=== PATIENT | female | born 1935 | race Caucasian/White ===

== ENCOUNTER 2017-04-02 16:29 | Inpatient (IN) ==
[2017-04-02] MEDS ORDERED: ETOMIDATE 20 MG/10 ML VIAL IV STA (16:55)
[2017-04-02] MEDS ORDERED: VECURONIUM 10 MG VIAL IV STA (16:58)
[2017-04-02] MEDS ORDERED: SODIUM CHLORIDE 0.9% 500 ML IV STA (17:03)
[2017-04-02] MEDS ORDERED: methylPREDNISolone SOD SUC 125 MG/2 ML VIAL IV STA (17:03)
[2017-04-02] MEDS ORDERED: ONDANSETRON 4 MG/2 ML VIAL IV STA (17:03)
[2017-04-02] MEDS ORDERED: VANCOMYCIN INJ 750 MG in SODIUM CHLORIDE 0.9% 250 ML IV STA (17:03)
[2017-04-02] MEDS ORDERED: PIPERACILLIN/TAZOBACTAM 3,375 MG in SODIUM CHLORIDE 0.9% 100 ML IV STA (17:03)
[2017-04-02] MEDS ORDERED: ETOMIDATE 20 MG/10 ML VIAL IV ONE (17:08)
[2017-04-02] MEDS ORDERED: VECURONIUM 10 MG VIAL IV ONE (17:09)
[2017-04-02 17:15] LABS: Basophils # 0.1 10*3/uL (0.0-0.2); Basophils % 0.3 % (0.0-0.8); Hematocrit 43.8 VOL% (35.7-47.0); Hemoglobin 13.9 GM/DL (12.0-16.0); Immature Granulocytes % 1.6 %; Immature Granulocytes Absolute 0.58 #; Lymphocytes # 1.3 10*3/uL (1.4-4.0); Lymphocytes % 3.7 % (21.3-54.2); Mean Corpuscular HGB Conc 31.7 GM/DL (32-36); Mean Corpuscular Hemoglobin 28 PG (27-34); Mean Corpuscular Volume 89.4 FL (87-102); Mean Platelet Volume 11.7 FL (9.6-12.0); Monocytes # 2.4 10*3/uL (0.11-0.8); Monocytes % 6.7 % (1.7-12.7); NRBC # 0.07 10*3/uL; Neutrophils % 87.7 % (38.7-73.9); Platelet Count 468 T/CUMM (130-400); Red Cell Distribution Width 14.2 % (9.3-17.3); White Blood Count 36.5 T/CUMM (4-12)
[2017-04-02] MEDS ORDERED: ONDANSETRON 4 MG/2 ML VIAL ONE (17:20)
[2017-04-02] MEDS ORDERED: methylPREDNISolone SOD SUC 125 MG/2 ML VIAL ONE (17:20)
[2017-04-02 17:24] LABS: PT Patient Result 10.8 SECS
[2017-04-02 17:39] LABS: Albumin 2.4 G/DL (3.4-5.0); Bilirubin,Total 0.4 MG/DL (0.2-1.0); Calcium 10.8 MG/DL (8.5-10.1); Osmolality,Calculated 327.3 MOS/KG (273-304); Potassium 3.9 MMOL/L (3.5-5.1); Total Protein 8.1 G/DL (6.4-8.3); Troponin I Only 0.02 NG/ML (0.00-0.045)
[2017-04-02] MEDS ORDERED: SODIUM CHLORIDE 0.9% 1,000 ML IV STA (17:53)
[2017-04-02 17:56] LABS: ABG Base Excess -11.7 MMOL/L (-2.5-2.5); ABG HCO3 15.8 MMOL/L (20-26); ABG Oxygen Saturation 99.2 % (95-100); ABG PCO2 38.7 MM HG (35-48); ABG PH 7.225 (7.35-7.45); ABG TCO2 13.4 MMOL/L (23-27); Allen Test Positive; Pt O2 Delivery Device Ventilator
[2017-04-02] MEDS ORDERED: VANCOMYCIN 1,000 MG VIAL ONE (18:01)
[2017-04-02 18:22] LABS: Lactic Acid 3.6 MMOL/L (0.4-2.0)
[2017-04-02] MEDS ORDERED: SODIUM CHLORIDE 0.9% 1,700 ML IV ONE (18:29)
[2017-04-02] MEDS ORDERED: SODIUM CHLORIDE 0.9% 1,000 ML IV SCH (18:30)
[2017-04-02] MEDS ORDERED: ALBUTEROL 2.5 MG/3 ML NEB RESP TX PRN (18:31)
[2017-04-02] MEDS ORDERED: ONDANSETRON 4 MG/2 ML VIAL IV PRN (18:31)
[2017-04-02] MEDS ORDERED: ACETAMINOPHEN 325 MG TABLET PO PRN (18:31)
[2017-04-02 18:43] LABS: PT Patient Result 10.9 SECS; Partial Thromboplastin Time 23.5 SECS (0-40)
[2017-04-02] MEDS ORDERED: DEXTROSE 5% 1,000 ML IV SCH (19:00)
[2017-04-02 19:42] LABS: Amorphous Crystals,Urine Moderate /HPF (Few); Apearance,Urine CLOUDY (Clear); Bacteria,Urine Many /HPF (Few); Bilirubin,Urine Negative (Negative); Blood, Urine Moderate mg/dL (Negative); Glucose,Urine (UA) Negative (Negative); Granular Casts,Urine 19 /LPF (0-1); Hyaline Casts,Urine 19 /LPF (0-3); Ketones,Urine Negative (Negative); Mucus,Urine Occasional /LPF (Occasional); Nitrite,Urine Negative (Negative); Protein,Urine >=500 MG/DL; RBC,Urine 9 /HPF (0-4); Squamous Epithelial Cell,Urine Occasional /HPF (0-10); Urine Color Amber (Yellow); Urine Specific Gravity 1.011 (1.001-1.035); WBC,Urine 30 /HPF (0-6)
[2017-04-02 20:37] LABS: Lymphocytes 4 % (20-55); Segmented Neutrophils 91 % (50-85); Total Cells Counted 100
[2017-04-02 20:38] LABS: Platelet Estimate Normal; Polychromasia Few
[2017-04-02] MEDS: ALBUTEROL/IPRATROPIUM 3 ML NEB RESP TX SCH (20:55)
[2017-04-02] MEDS: SODIUM BICARB INJ 50 MEQ in DEXTROSE 5% 1,000 ML IV SCH (21:30)
[2017-04-02] MEDS: NOREPINEPHRINE 8 MG in SODIUM CHLORIDE 0.9% 242 ML IV SCH (21:30)
[2017-04-02 21:41] LABS: ABG Base Excess -13.5 MMOL/L (-2.5-2.5); ABG HCO3 14.1 MMOL/L (20-26); ABG Oxygen Saturation 99.3 % (95-100); ABG PCO2 27.4 MM HG (35-48); ABG PH 7.263 (7.35-7.45); ABG TCO2 11.3 MMOL/L (23-27)
[2017-04-02] MEDS: DILTIAZEM INJ 100 MG in SODIUM CHLORIDE 0.9% 100 ML IV SCH (22:18)
[2017-04-02] MEDS: PANTOPRAZOLE 40 MG VIAL IV SCH (22:22)
[2017-04-02] MEDS: ENOXAPARIN 30 MG/0.3 ML SYRINGE SUBCUT SCH (22:27)
[2017-04-02 22:52] LABS: ABG Base Excess -13.1 MMOL/L (-2.5-2.5); ABG HCO3 14.3 MMOL/L (20-26); ABG Oxygen Saturation 98.4 % (95-100); ABG PCO2 38.3 MM HG (35-48); ABG PO2 167.9 MM HG (80-95); ABG TCO2 15.5 MMOL/L (23-27)
[2017-04-02 23:49] LABS: Lactic Acid 2.4 MMOL/L (0.4-2.0)
[2017-04-03] MEDS ORDERED: SODIUM BICARBONATE 50 MEQ/50 ML SYRINGE IV ONE ×2 (00:28→00:30)
[2017-04-03] MEDS: ALBUTEROL/IPRATROPIUM 3 ML NEB RESP TX SCH ×4 (00:32→19:31)
[2017-04-03 04:15] LABS: ABG Base Excess -6.8 MMOL/L (-2.5-2.5); ABG HCO3 18.9 MMOL/L (20-26); ABG Oxygen Saturation 98.1 % (95-100); ABG PCO2 43.8 MM HG (35-48); ABG PH 7.268 (7.35-7.45); ABG TCO2 18.4 MMOL/L (23-27)
[2017-04-03 05:42] LABS: Basophils # 0.1 10*3/uL (0.0-0.2); Basophils % 0.2 % (0.0-0.8); Hematocrit 34.1 VOL% (35.7-47.0); Hemoglobin 10.6 GM/DL (12.0-16.0); Immature Granulocytes % 0.7 %; Immature Granulocytes Absolute 0.17 #; Lymphocytes # 1.2 10*3/uL (1.4-4.0); Lymphocytes % 4.9 % (21.3-54.2); Mean Corpuscular HGB Conc 31.1 GM/DL (32-36); Mean Corpuscular Hemoglobin 29 PG (27-34); Mean Corpuscular Volume 91.9 FL (87-102); Mean Platelet Volume 11.4 FL (9.6-12.0); Monocytes # 0.8 10*3/uL (0.11-0.8); Monocytes % 3.2 % (1.7-12.7); NRBC # 0.02 10*3/uL; Neutrophils # 22.5 10*3/uL (1.4-7.4); Platelet Count 282 T/CUMM (130-400); Red Blood Count 3.71 MC/CUMM (3.8-5.5); Red Cell Distribution Width 14.4 % (9.3-17.3); White Blood Count 24.7 T/CUMM (4-12)
[2017-04-03 05:54] LABS: Lactic Acid 2.5 MMOL/L (0.4-2.0)
[2017-04-03 06:09] LABS: Alanine Aminotransferase 16 U/L (13-56); Albumin 1.5 G/DL (3.4-5.0); Alkaline Phosphatase 82 U/L (45-117); Aspartate Amino Transferase 23 U/L (0-37); Bilirubin,Total < 0.39 MG/DL (0.2-1.0); Blood Urea Nitrogen 58 MG/DL (7-18); Calcium 7.2 MG/DL (8.5-10.1); Glucose 343 MG/DL (74-106); Osmolality,Calculated 336.3 MOS/KG (273-304); Potassium 2.8 MMOL/L (3.5-5.1); Sodium 155 MMOL/L (136-145); Total Protein 5.1 G/DL (6.4-8.3)
[2017-04-03 06:16] LABS: Band Neutrophils 11 % (0-10); Giant Platelets Few; Hypochromasia 1+; Lymphocytes 3 % (20-55); Nucleated Red Blood Cells 1 (0-5); Ovalocytes Slight; Platelet Estimate Adequate; Segmented Neutrophils 83 % (50-85); Total Cells Counted 100
[2017-04-03] MEDS: SODIUM BICARB INJ 50 MEQ in DEXTROSE 5% 1,000 ML IV SCH ×2 (06:36→14:45)
[2017-04-03] MEDS ORDERED: LIDOCAINE 2% 20 ML VIAL RESP TX ONE (06:36)
[2017-04-03] MEDS ORDERED: LIDOCAINE 1% 20 ML VIAL MISC INJ ONE (06:36)
[2017-04-03] MEDS: PROPOFOL 1,000 MG/100 ML BOTTLE IV SCH ×2 (07:00→21:39)
[2017-04-03 08:10] LABS: ABG Base Excess -5.3 MMOL/L (-2.5-2.5); ABG HCO3 19.6 MMOL/L (20-26); ABG Oxygen Saturation 97.4 % (95-100); ABG PCO2 36.4 MM HG (35-48); ABG PO2 98.6 MM HG (80-95); ABG TCO2 20.8 MMOL/L (23-27); Pt O2 Delivery Device Ventilator
[2017-04-03] MEDS: PIPERACILLIN/TAZOBACTAM 3,375 MG in SODIUM CHLORIDE 0.9% 100 ML IV SCH ×2 (08:30→21:23)
[2017-04-03] MEDS ORDERED: POTASSIUM CHLORIDE RIDER 20 MEQ in PREMIX 1 EACH IV PRN (08:44)
[2017-04-03] MEDS ORDERED: POTASSIUM CHLORIDE RIDER 10 MEQ in PREMIX 1 EACH IV PRN (08:47)
[2017-04-03] MEDS ORDERED: PANTOPRAZOLE 40 MG TABLET PO SCH (09:00)
[2017-04-03] MEDS: POTASSIUM CHLORIDE RIDER 20 MEQ in PREMIX 1 EACH IV PRN ×4 (09:00→14:45)
[2017-04-03] MEDS: NOREPINEPHRINE 8 MG in SODIUM CHLORIDE 0.9% 242 ML IV SCH (09:15)
[2017-04-03] MEDS: INSULIN REGULAR 100 UNIT/ML SUBCUT SCH ×2 (11:45→18:15)
[2017-04-03] MEDS ORDERED: GLUCAGON 1 MG VIAL IM PRN (12:34)
[2017-04-03] MEDS ORDERED: DEXTROSE 50% 25 GM/50 ML VIAL IV PRN (12:34)
[2017-04-03] MEDS: ENOXAPARIN 30 MG/0.3 ML SYRINGE SUBCUT SCH (21:23)
[2017-04-03] MEDS: DILTIAZEM INJ 100 MG in SODIUM CHLORIDE 0.9% 100 ML IV SCH (21:23)
[2017-04-03] MEDS: PANTOPRAZOLE 40 MG VIAL IV SCH (21:23)
[2017-04-04] MEDS: SODIUM BICARB INJ 50 MEQ in DEXTROSE 5% 1,000 ML IV SCH ×4 (00:10→21:35)
[2017-04-04] MEDS: INSULIN REGULAR 100 UNIT/ML SUBCUT SCH ×4 (00:24→18:27)
[2017-04-04] MEDS: ALBUTEROL/IPRATROPIUM 3 ML NEB RESP TX SCH ×4 (00:47→19:07)
[2017-04-04 03:30] LABS: ABG Base Excess -1.4 MMOL/L (-2.5-2.5); ABG HCO3 23.3 MMOL/L (20-26); ABG Oxygen Saturation 99.7 % (95-100); ABG PCO2 28.6 MM HG (35-48); ABG PH 7.483 (7.35-7.45); ABG TCO2 19.8 MMOL/L (23-27); Allen Test Positive; Pt O2 Delivery Device Ventilator
[2017-04-04 04:45] LABS: Basophils # 0.1 10*3/uL (0.0-0.2); Basophils % 0.1 % (0.0-0.8); Hematocrit 26.4 VOL% (35.7-47.0); Hemoglobin 8.4 GM/DL (12.0-16.0); Immature Granulocytes % 2.7 %; Lymphocytes # 2.2 10*3/uL (1.4-4.0); Lymphocytes % 6.5 % (21.3-54.2); Mean Corpuscular HGB Conc 31.8 GM/DL (32-36); Mean Corpuscular Hemoglobin 28 PG (27-34); Mean Corpuscular Volume 88.3 FL (87-102); Mean Platelet Volume 11.4 FL (9.6-12.0); Monocytes # 0.5 10*3/uL (0.11-0.8); Monocytes % 1.4 % (1.7-12.7); NRBC # 0.02 10*3/uL; Neutrophils # 30.2 10*3/uL (1.4-7.4); Neutrophils % 89.3 % (38.7-73.9); Platelet Count 253 T/CUMM (130-400); Red Blood Count 2.99 MC/CUMM (3.8-5.5); Red Cell Distribution Width 14.2 % (9.3-17.3); White Blood Count 33.8 T/CUMM (4-12)
[2017-04-04 05:06] LABS: Band Neutrophils 2 % (0-10); Lymphocytes 4 % (20-55); Platelet Estimate Adequate; Segmented Neutrophils 93 % (50-85); Total Cells Counted 100
[2017-04-04 05:07] LABS: Hypochromasia Slight; Ovalocytes Slight
[2017-04-04 05:17] LABS: Prealbumin < 3.0 MG/DL (20-40)
[2017-04-04] MEDS: NOREPINEPHRINE 8 MG in SODIUM CHLORIDE 0.9% 242 ML IV SCH ×2 (05:18→19:08)
[2017-04-04 05:23] LABS: Calcium 6.7 MG/DL (8.5-10.1); Osmolality,Calculated 309.4 MOS/KG (273-304); Potassium 3.1 MMOL/L (3.5-5.1)
[2017-04-04] MEDS: POTASSIUM CHLORIDE RIDER 20 MEQ in PREMIX 1 EACH IV PRN ×4 (06:42→18:29)
[2017-04-04] MEDS: PIPERACILLIN/TAZOBACTAM 3,375 MG in SODIUM CHLORIDE 0.9% 100 ML IV SCH ×2 (09:47→20:13)
[2017-04-04] MEDS: LINEZOLID INJ 600 MG in PREMIX 1 EACH IV SCH ×2 (10:27→20:14)
[2017-04-04] MEDS ORDERED: SODIUM PHOSPHATE INJ 30 MMOL in SODIUM CHLORIDE 0.9% 250 ML IV ONE (10:30)
[2017-04-04] MEDS: DILTIAZEM INJ 100 MG in SODIUM CHLORIDE 0.9% 100 ML IV SCH (18:27)
[2017-04-04] MEDS: PROPOFOL 1,000 MG/100 ML BOTTLE IV SCH (18:27)
[2017-04-04] MEDS: PANTOPRAZOLE 40 MG VIAL IV SCH (20:13)
[2017-04-04] MEDS: ENOXAPARIN 30 MG/0.3 ML SYRINGE SUBCUT SCH (20:14)
[2017-04-05] MEDS: INSULIN REGULAR 100 UNIT/ML SUBCUT SCH ×4 (00:23→17:59)
[2017-04-05] MEDS: ALBUTEROL/IPRATROPIUM 3 ML NEB RESP TX SCH ×4 (01:31→19:21)
[2017-04-05 04:06] LABS: ABG Base Excess -1.1 MMOL/L (-2.5-2.5); ABG HCO3 23.5 MMOL/L (20-26); ABG Oxygen Saturation 97.7 % (95-100); ABG PCO2 31.2 MM HG (35-48); ABG PO2 85.5 MM HG (80-95); ABG TCO2 20.7 MMOL/L (23-27)
[2017-04-05 04:45] LABS: Basophils % 0.1 % (0.0-0.8); Eosinophils % 0.2 % (0.00-10.9); Hematocrit 22.3 VOL% (35.7-47.0); Hemoglobin 7.5 GM/DL (12.0-16.0); Immature Granulocytes % 2.8 %; Immature Granulocytes Absolute 0.51 #; Lymphocytes # 1.7 10*3/uL (1.4-4.0); Lymphocytes % 8.9 % (21.3-54.2); Mean Corpuscular HGB Conc 33.6 GM/DL (32-36); Mean Corpuscular Hemoglobin 28 PG (27-34); Mean Corpuscular Volume 84.5 FL (87-102); Mean Platelet Volume 11.3 FL (9.6-12.0); Monocytes # 0.3 10*3/uL (0.11-0.8); Monocytes % 1.6 % (1.7-12.7); Neutrophils % 86.4 % (38.7-73.9); Platelet Count 178 T/CUMM (130-400); Red Blood Count 2.64 MC/CUMM (3.8-5.5); Red Cell Distribution Width 14.3 % (9.3-17.3); White Blood Count 18.5 T/CUMM (4-12)
[2017-04-05 05:04] LABS: Calcium 6.3 MG/DL (8.5-10.1); Osmolality,Calculated 292.4 MOS/KG (273-304); Potassium 3.1 MMOL/L (3.5-5.1)
[2017-04-05 05:20] LABS: Band Neutrophils 2 % (0-10); Giant Platelets Few; Hypochromasia 1+; Lymphocytes 8 % (20-55); Nucleated Red Blood Cells 1 (0-5); Ovalocytes Slight; Platelet Estimate Normal; Segmented Neutrophils 90 % (50-85); Total Cells Counted 100
[2017-04-05] MEDS: POTASSIUM CHLORIDE RIDER 20 MEQ in PREMIX 1 EACH IV PRN ×2 (06:23→18:43)
[2017-04-05] MEDS: SODIUM BICARB INJ 50 MEQ in DEXTROSE 5% 1,000 ML IV SCH ×2 (07:00→17:34)
[2017-04-05] MEDS ORDERED: FUROSEMIDE 20 MG/2 ML VIAL IV PRN (07:04)
[2017-04-05] MEDS ORDERED: SODIUM CHLORIDE 0.9% 1,000 ML IV PRN (07:04)
[2017-04-05] MEDS: PIPERACILLIN/TAZOBACTAM 3,375 MG in SODIUM CHLORIDE 0.9% 100 ML IV SCH ×2 (09:10→21:34)
[2017-04-05] MEDS: POTASSIUM CHLORIDE 20 MEQ/15 ML UDCUP PO SCH ×2 (09:10→21:32)
[2017-04-05] MEDS: LINEZOLID INJ 600 MG in PREMIX 1 EACH IV SCH ×2 (09:10→21:34)
[2017-04-05] MEDS: DEXMEDETOMIDINE 200 MCG in SODIUM CHLORIDE 0.9% 48 ML IV SCH ×2 (11:57→17:10)
[2017-04-05] MEDS: PROPOFOL 1,000 MG/100 ML BOTTLE IV SCH (18:01)
[2017-04-05] MEDS: DILTIAZEM INJ 100 MG in SODIUM CHLORIDE 0.9% 100 ML IV SCH (18:52)
[2017-04-05] MEDS: NOREPINEPHRINE 8 MG in SODIUM CHLORIDE 0.9% 242 ML IV SCH (18:52)
[2017-04-05] MEDS: ENOXAPARIN 30 MG/0.3 ML SYRINGE SUBCUT SCH (21:31)
[2017-04-05] MEDS: PANTOPRAZOLE 40 MG VIAL IV SCH (21:33)
[2017-04-06] MEDS: ALBUTEROL/IPRATROPIUM 3 ML NEB RESP TX SCH ×4 (01:16→18:52)
[2017-04-06] MEDS: SODIUM BICARB INJ 50 MEQ in DEXTROSE 5% 1,000 ML IV SCH ×2 (01:40→15:41)
[2017-04-06] MEDS: PROPOFOL 1,000 MG/100 ML BOTTLE IV SCH ×4 (03:00→21:08)
[2017-04-06 04:25] LABS: ABG Base Excess 1.3 MMOL/L (-2.5-2.5); ABG HCO3 25.5 MMOL/L (20-26); ABG Oxygen Saturation 98.5 % (95-100); ABG PCO2 34.9 MM HG (35-48); ABG PH 7.454 (7.35-7.45)
[2017-04-06 06:07] LABS: Basophils % 0.2 % (0.0-0.8); Eosinophils # 0.2 10*3/uL (0.0-0.87); Eosinophils % 1.1 % (0.00-10.9); Hematocrit 31.9 VOL% (35.7-47.0); Hemoglobin 10.9 GM/DL (12.0-16.0); Immature Granulocytes % 1.5 %; Immature Granulocytes Absolute 0.29 #; Lymphocytes # 2.1 10*3/uL (1.4-4.0); Mean Corpuscular HGB Conc 34.2 GM/DL (32-36); Mean Corpuscular Hemoglobin 28 PG (27-34); Mean Corpuscular Volume 81.4 FL (87-102); Mean Platelet Volume 11.3 FL (9.6-12.0); Monocytes # 0.3 10*3/uL (0.11-0.8); Monocytes % 1.6 % (1.7-12.7); Neutrophils % 84.6 % (38.7-73.9); Platelet Count 165 T/CUMM (130-400); Red Blood Count 3.92 MC/CUMM (3.8-5.5); Red Cell Distribution Width 16.4 % (9.3-17.3); White Blood Count 18.9 T/CUMM (4-12)
[2017-04-06 06:32] LABS: Hypochromasia 2+
[2017-04-06] MEDS: INSULIN REGULAR 100 UNIT/ML SUBCUT SCH ×4 (07:40→18:28)
[2017-04-06] MEDS: PIPERACILLIN/TAZOBACTAM 3,375 MG in SODIUM CHLORIDE 0.9% 100 ML IV SCH ×2 (08:36→21:09)
[2017-04-06] MEDS: LINEZOLID INJ 600 MG in PREMIX 1 EACH IV SCH ×2 (08:37→21:10)
[2017-04-06] MEDS: POTASSIUM CHLORIDE 20 MEQ/15 ML UDCUP PO SCH ×2 (08:38→21:09)
[2017-04-06 09:36] LABS: Albumin 1.1 G/DL (3.4-5.0); Bilirubin,Total 0.4 MG/DL (0.2-1.0); Calcium 6.2 MG/DL (8.5-10.1); Osmolality,Calculated 286.5 MOS/KG (273-304); Potassium 3.5 MMOL/L (3.5-5.1); Total Protein 4.5 G/DL (6.4-8.3)
[2017-04-06] MEDS: DEXMEDETOMIDINE 200 MCG in SODIUM CHLORIDE 0.9% 48 ML IV SCH (11:45)
[2017-04-06] MEDS: NOREPINEPHRINE 8 MG in SODIUM CHLORIDE 0.9% 242 ML IV SCH (15:53)
[2017-04-06] MEDS: PANTOPRAZOLE 40 MG VIAL IV SCH (21:09)
[2017-04-06] MEDS: ENOXAPARIN 30 MG/0.3 ML SYRINGE SUBCUT SCH (21:09)
[2017-04-07] MEDS: SODIUM BICARB INJ 50 MEQ in DEXTROSE 5% 1,000 ML IV SCH
[2017-04-07] MEDS: ALBUTEROL/IPRATROPIUM 3 ML NEB RESP TX SCH ×4 (00:50→20:16)
[2017-04-07 04:15] LABS: ABG Base Excess 1.7 MMOL/L (-2.5-2.5); ABG HCO3 25.9 MMOL/L (20-26); ABG Oxygen Saturation 96.5 % (95-100); ABG PCO2 33.9 MM HG (35-48); ABG PH 7.474 (7.35-7.45); ABG PO2 75.1 MM HG (80-95); ABG TCO2 22.1 MMOL/L (23-27); Pt O2 Delivery Device Ventilator
[2017-04-07] MEDS: PROPOFOL 1,000 MG/100 ML BOTTLE IV SCH ×3 (05:00→22:50)
[2017-04-07 05:36] LABS: Basophils % 0.2 % (0.0-0.8); Eosinophils # 0.2 10*3/uL (0.0-0.87); Eosinophils % 1.2 % (0.00-10.9); Hematocrit 32.6 VOL% (35.7-47.0); Hemoglobin 11.1 GM/DL (12.0-16.0); Immature Granulocytes % 2.8 %; Immature Granulocytes Absolute 0.52 #; Lymphocytes # 1.8 10*3/uL (1.4-4.0); Lymphocytes % 9.6 % (21.3-54.2); Mean Corpuscular Hemoglobin 28 PG (27-34); Mean Corpuscular Volume 81.7 FL (87-102); Mean Platelet Volume 11.3 FL (9.6-12.0); Monocytes # 0.4 10*3/uL (0.11-0.8); Monocytes % 2.1 % (1.7-12.7); Neutrophils # 15.4 10*3/uL (1.4-7.4); Neutrophils % 84.1 % (38.7-73.9); Platelet Count 182 T/CUMM (130-400); Red Blood Count 3.99 MC/CUMM (3.8-5.5); Red Cell Distribution Width 16.1 % (9.3-17.3); White Blood Count 18.4 T/CUMM (4-12)
[2017-04-07 06:01] LABS: Calcium 6.8 MG/DL (8.5-10.1); Osmolality,Calculated 284.5 MOS/KG (273-304); Potassium 4.1 MMOL/L (3.5-5.1)
[2017-04-07] MEDS: INSULIN REGULAR 100 UNIT/ML SUBCUT SCH ×3 (06:28→17:48)
[2017-04-07] MEDS: NOREPINEPHRINE 8 MG in SODIUM CHLORIDE 0.9% 242 ML IV SCH (06:28)
[2017-04-07 06:36] LABS: Band Neutrophils 12 % (0-10); Eosinophils 1 % (0-10); Hypochromasia Slight; Lymphocytes 8 % (20-55); Platelet Estimate Adequate; Segmented Neutrophils 73 % (50-85); Total Cells Counted 100
[2017-04-07] MEDS ORDERED: MAGNESIUM SULF RIDER 4 GM in PREMIX 1 EACH IV PRN (07:39)
[2017-04-07] MEDS ORDERED: MAGNESIUM SULF RIDER 2 GM in PREMIX 1 EACH IV PRN (07:39)
[2017-04-07] MEDS: POTASSIUM CHLORIDE 20 MEQ/15 ML UDCUP PO SCH ×2 (09:36→21:03)
[2017-04-07] MEDS: FUROSEMIDE 40 MG/4 ML VIAL IV SCH (09:36)
[2017-04-07] MEDS: PIPERACILLIN/TAZOBACTAM 3,375 MG in SODIUM CHLORIDE 0.9% 100 ML IV SCH ×2 (09:36→21:04)
[2017-04-07] MEDS: HALOPERIDOL 5 MG/ML AMP IV SCH ×2 (14:34→21:03)
[2017-04-07] MEDS: PANTOPRAZOLE 40 MG VIAL IV SCH (21:03)
[2017-04-07] MEDS: ENOXAPARIN 30 MG/0.3 ML SYRINGE SUBCUT SCH (21:03)
[2017-04-08] MEDS: ALBUTEROL/IPRATROPIUM 3 ML NEB RESP TX SCH ×4 (00:31→19:00)
[2017-04-08] MEDS: INSULIN REGULAR 100 UNIT/ML SUBCUT SCH ×4 (01:36→18:10)
[2017-04-08] MEDS: NOREPINEPHRINE 8 MG in SODIUM CHLORIDE 0.9% 242 ML IV SCH (01:36)
[2017-04-08 04:24] LABS: ABG Oxygen Saturation 97.7 % (95-100); ABG PCO2 38.1 MM HG (35-48); ABG PH 7.456 (7.35-7.45); ABG PO2 92.9 MM HG (80-95); ABG TCO2 23.8 MMOL/L (23-27)
[2017-04-08 05:23] LABS: Basophils % 0.1 % (0.0-0.8); Eosinophils # 0.2 10*3/uL (0.0-0.87); Eosinophils % 0.9 % (0.00-10.9); Hematocrit 34.4 VOL% (35.7-47.0); Hemoglobin 11.1 GM/DL (12.0-16.0); Immature Granulocytes % 3.1 %; Immature Granulocytes Absolute 0.51 #; Lymphocytes # 1.8 10*3/uL (1.4-4.0); Lymphocytes % 10.8 % (21.3-54.2); Mean Corpuscular HGB Conc 32.3 GM/DL (32-36); Mean Corpuscular Hemoglobin 28 PG (27-34); Mean Corpuscular Volume 85.6 FL (87-102); Mean Platelet Volume 10.6 FL (9.6-12.0); Monocytes # 0.4 10*3/uL (0.11-0.8); Monocytes % 2.3 % (1.7-12.7); Neutrophils # 13.7 10*3/uL (1.4-7.4); Neutrophils % 82.8 % (38.7-73.9); Platelet Count 183 T/CUMM (130-400); Red Blood Count 4.02 MC/CUMM (3.8-5.5); Red Cell Distribution Width 16.2 % (9.3-17.3); White Blood Count 16.6 T/CUMM (4-12)
[2017-04-08 05:39] LABS: Calcium 7.6 MG/DL (8.5-10.1); Osmolality,Calculated 289.3 MOS/KG (273-304); Potassium 4.5 MMOL/L (3.5-5.1)
[2017-04-08 05:42] LABS: Prealbumin 9.2 MG/DL (20-40)
[2017-04-08 05:50] LABS: Band Neutrophils 2 % (0-10); Hypochromasia 1+; Lymphocytes 11 % (20-55); Microcytosis 1+; Myelocytes 1 %; Ovalocytes Slight; Promyelocytes 1 %; Segmented Neutrophils 84 % (50-85); Total Cells Counted 100
[2017-04-08] MEDS: PROPOFOL 1,000 MG/100 ML BOTTLE IV SCH ×2 (06:59→20:23)
[2017-04-08] MEDS: PIPERACILLIN/TAZOBACTAM 3,375 MG in SODIUM CHLORIDE 0.9% 100 ML IV SCH ×2 (09:00→21:28)
[2017-04-08] MEDS: POTASSIUM CHLORIDE 20 MEQ/15 ML UDCUP PO SCH ×2 (09:00→21:28)
[2017-04-08] MEDS: HALOPERIDOL 5 MG/ML AMP IV SCH ×2 (09:00→21:27)
[2017-04-08] MEDS: FUROSEMIDE 40 MG/4 ML VIAL IV SCH (09:00)
[2017-04-08] MEDS: ENOXAPARIN 30 MG/0.3 ML SYRINGE SUBCUT SCH (21:27)
[2017-04-08] MEDS: PANTOPRAZOLE 40 MG VIAL IV SCH (21:28)
[2017-04-09] MEDS: ALBUTEROL/IPRATROPIUM 3 ML NEB RESP TX SCH ×4 (00:19→20:27)
[2017-04-09 05:31] LABS: ABG Base Excess 3.5 MMOL/L (-2.5-2.5); ABG HCO3 27.5 MMOL/L (20-26); ABG Oxygen Saturation 98.7 % (95-100); ABG PCO2 36.3 MM HG (35-48); ABG PH 7.476 (7.35-7.45); ABG TCO2 22.6 MMOL/L (23-27); Allen Test Positive; Pt O2 Delivery Device Ventilator
[2017-04-09] MEDS: INSULIN REGULAR 100 UNIT/ML SUBCUT SCH ×3 (05:59→18:42)
[2017-04-09] MEDS: NOREPINEPHRINE 8 MG in SODIUM CHLORIDE 0.9% 242 ML IV SCH ×2 (08:11→18:43)
[2017-04-09 08:13] LABS: Basophils % 0.1 % (0.0-0.8); Eosinophils # 0.1 10*3/uL (0.0-0.87); Eosinophils % 0.6 % (0.00-10.9); Hematocrit 35.9 VOL% (35.7-47.0); Hemoglobin 11.4 GM/DL (12.0-16.0); Immature Granulocytes % 3.2 %; Immature Granulocytes Absolute 0.47 #; Lymphocytes # 1.6 10*3/uL (1.4-4.0); Lymphocytes % 11.2 % (21.3-54.2); Mean Corpuscular HGB Conc 31.8 GM/DL (32-36); Mean Corpuscular Hemoglobin 27 PG (27-34); Mean Corpuscular Volume 85.3 FL (87-102); Mean Platelet Volume 10.6 FL (9.6-12.0); Monocytes # 0.5 10*3/uL (0.11-0.8); Monocytes % 3.2 % (1.7-12.7); Neutrophils # 11.9 10*3/uL (1.4-7.4); Neutrophils % 81.7 % (38.7-73.9); Platelet Count 213 T/CUMM (130-400); Red Blood Count 4.21 MC/CUMM (3.8-5.5); Red Cell Distribution Width 16.2 % (9.3-17.3); White Blood Count 14.6 T/CUMM (4-12)
[2017-04-09 08:45] LABS: Albumin 1.4 G/DL (3.4-5.0); Bilirubin,Total 0.4 MG/DL (0.2-1.0); Calcium 7.8 MG/DL (8.5-10.1); Osmolality,Calculated 290.4 MOS/KG (273-304); Potassium 4.6 MMOL/L (3.5-5.1); Total Protein 5.6 G/DL (6.4-8.3)
[2017-04-09] MEDS: FUROSEMIDE 40 MG/4 ML VIAL IV SCH (09:23)
[2017-04-09] MEDS: HALOPERIDOL 5 MG/ML AMP IV SCH ×2 (09:25→21:31)
[2017-04-09] MEDS: PIPERACILLIN/TAZOBACTAM 3,375 MG in SODIUM CHLORIDE 0.9% 100 ML IV SCH ×2 (09:29→21:31)
[2017-04-09] MEDS: POTASSIUM CHLORIDE 20 MEQ/15 ML UDCUP PO SCH ×2 (09:30→21:31)
[2017-04-09] MEDS: PROPOFOL 1,000 MG/100 ML BOTTLE IV SCH (18:42)
[2017-04-09] MEDS: PANTOPRAZOLE 40 MG VIAL IV SCH (21:31)
[2017-04-09] MEDS: ENOXAPARIN 30 MG/0.3 ML SYRINGE SUBCUT SCH (21:31)
[2017-04-10] MEDS: ALBUTEROL/IPRATROPIUM 3 ML NEB RESP TX SCH ×4 (01:03→19:42)
[2017-04-10 03:56] LABS: ABG Base Excess 2.8 MMOL/L (-2.5-2.5); ABG Oxygen Saturation 98.5 % (95-100); ABG PCO2 35.9 MM HG (35-48); ABG PH 7.473 (7.35-7.45); ABG TCO2 23.3 MMOL/L (23-27); Allen Test Positive; Pt O2 Delivery Device Ventilator
[2017-04-10] MEDS: INSULIN REGULAR 100 UNIT/ML SUBCUT SCH ×4 (04:38→18:30)
[2017-04-10 06:12] LABS: Basophils % 0.2 % (0.0-0.8); Eosinophils # 0.1 10*3/uL (0.0-0.87); Eosinophils % 0.9 % (0.00-10.9); Immature Granulocytes % 3.6 %; Lymphocytes # 1.9 10*3/uL (1.4-4.0); Lymphocytes % 13.7 % (21.3-54.2); Mean Corpuscular HGB Conc 31.4 GM/DL (32-36); Mean Corpuscular Hemoglobin 27 PG (27-34); Mean Corpuscular Volume 86.4 FL (87-102); Mean Platelet Volume 10.9 FL (9.6-12.0); Monocytes # 0.7 10*3/uL (0.11-0.8); Monocytes % 4.8 % (1.7-12.7); Neutrophils # 10.6 10*3/uL (1.4-7.4); Neutrophils % 76.8 % (38.7-73.9); Platelet Count 233 T/CUMM (130-400); Red Blood Count 4.05 MC/CUMM (3.8-5.5); Red Cell Distribution Width 15.9 % (9.3-17.3); White Blood Count 13.8 T/CUMM (4-12)
[2017-04-10 06:47] LABS: Albumin 1.5 G/DL (3.4-5.0); Bilirubin,Total 0.5 MG/DL (0.2-1.0); Calcium 8.4 MG/DL (8.5-10.1); Osmolality,Calculated 290.5 MOS/KG (273-304); Potassium 4.9 MMOL/L (3.5-5.1); Total Protein 5.7 G/DL (6.4-8.3)
[2017-04-10] MEDS ORDERED: LEVOFLOXACIN INJ 500 MG in PREMIX 1 EACH IV ONE (08:30)
[2017-04-10] MEDS: FUROSEMIDE 40 MG/4 ML VIAL IV SCH (09:07)
[2017-04-10] MEDS: HALOPERIDOL 5 MG/ML AMP IV SCH ×2 (09:07→21:36)
[2017-04-10] MEDS: POTASSIUM CHLORIDE 20 MEQ/15 ML UDCUP PO SCH ×2 (09:07→21:37)
[2017-04-10] MEDS: CARVEDILOL 12.5 MG TABLET PO SCH ×2 (13:12→21:37)
[2017-04-10] MEDS: PANTOPRAZOLE 40 MG VIAL IV SCH (21:35)
[2017-04-10] MEDS: ENOXAPARIN 30 MG/0.3 ML SYRINGE SUBCUT SCH (21:40)
[2017-04-11] MEDS: INSULIN REGULAR 100 UNIT/ML SUBCUT SCH ×5 (00:55→23:52)
[2017-04-11] MEDS: ALBUTEROL/IPRATROPIUM 3 ML NEB RESP TX SCH ×4 (01:19→20:10)
[2017-04-11 04:05] LABS: ABG Base Excess 1.9 MMOL/L (-2.5-2.5); ABG HCO3 26.1 MMOL/L (20-26); ABG Oxygen Saturation 97.5 % (95-100); ABG PH 7.476 (7.35-7.45); ABG PO2 89.6 MM HG (80-95); ABG TCO2 22.2 MMOL/L (23-27); Allen Test Positive; Pt O2 Delivery Device Ventilator
[2017-04-11 04:54] LABS: Basophils % 0.1 % (0.0-0.8); Eosinophils # 0.2 10*3/uL (0.0-0.87); Hematocrit 34.7 VOL% (35.7-47.0); Hemoglobin 10.9 GM/DL (12.0-16.0); Immature Granulocytes % 4.7 %; Immature Granulocytes Absolute 0.69 #; Lymphocytes % 13.7 % (21.3-54.2); Mean Corpuscular HGB Conc 31.4 GM/DL (32-36); Mean Corpuscular Hemoglobin 27 PG (27-34); Mean Corpuscular Volume 87.2 FL (87-102); Mean Platelet Volume 10.7 FL (9.6-12.0); Monocytes # 0.7 10*3/uL (0.11-0.8); Monocytes % 4.7 % (1.7-12.7); Neutrophils % 75.8 % (38.7-73.9); Platelet Count 252 T/CUMM (130-400); Red Blood Count 3.98 MC/CUMM (3.8-5.5); Red Cell Distribution Width 15.3 % (9.3-17.3); White Blood Count 14.6 T/CUMM (4-12)
[2017-04-11 05:14] LABS: Alanine Aminotransferase 23 U/L (13-56); Albumin 1.5 G/DL (3.4-5.0); Alkaline Phosphatase 122 U/L (45-117); Aspartate Amino Transferase 32 U/L (0-37); Bilirubin,Total < 0.39 MG/DL (0.2-1.0); Blood Urea Nitrogen 46 MG/DL (7-18); Calcium 8.5 MG/DL (8.5-10.1); Glucose 101 MG/DL (74-106); Osmolality,Calculated 281.1 MOS/KG (273-304); Potassium 5.1 MMOL/L (3.5-5.1); Sodium 135 MMOL/L (136-145); Total Protein 5.9 G/DL (6.4-8.3)
[2017-04-11 05:22] LABS: Band Neutrophils 4 % (0-10); Eosinophils 1 % (0-10); Giant Platelets Few; Hypochromasia 1+; Lymphocytes 8 % (20-55); Microcytosis Slight; Ovalocytes Slight; Platelet Estimate Adequate; Segmented Neutrophils 81 % (50-85); Total Cells Counted 100
[2017-04-11 05:44] LABS: Prealbumin 22.5 MG/DL (20-40)
[2017-04-11] MEDS: POTASSIUM CHLORIDE 20 MEQ/15 ML UDCUP PO SCH ×2 (08:31→20:30)
[2017-04-11] MEDS: LEVOFLOXACIN INJ 250 MG in PREMIX 1 EACH IV SCH (08:31)
[2017-04-11] MEDS: HALOPERIDOL 5 MG/ML AMP IV SCH ×2 (08:32→20:30)
[2017-04-11] MEDS: FUROSEMIDE 40 MG/4 ML VIAL IV SCH (08:32)
[2017-04-11] MEDS: CARVEDILOL 12.5 MG TABLET PO SCH ×2 (08:32→20:29)
[2017-04-11 10:02] LABS: ABG Base Excess 1.6 MMOL/L (-2.5-2.5); ABG HCO3 24.4 MMOL/L (20-26); ABG Oxygen Saturation 97.7 % (95-100); ABG PCO2 32.8 MM HG (35-48); ABG PO2 103.1 MM HG (80-95); ABG TCO2 25.4 MMOL/L (23-27)
[2017-04-11] MEDS: PANTOPRAZOLE 40 MG VIAL IV SCH (20:29)
[2017-04-11] MEDS: ENOXAPARIN 30 MG/0.3 ML SYRINGE SUBCUT SCH (20:29)
[2017-04-12] MEDS: ALBUTEROL/IPRATROPIUM 3 ML NEB RESP TX SCH ×4 (00:48→19:41)
[2017-04-12 04:06] LABS: Basophils % 0.2 % (0.0-0.8); Eosinophils # 0.1 10*3/uL (0.0-0.87); Eosinophils % 0.5 % (0.00-10.9); Immature Granulocytes Absolute 0.47 #; Lymphocytes # 2.2 10*3/uL (1.4-4.0); Lymphocytes % 13.7 % (21.3-54.2); Mean Corpuscular HGB Conc 31.4 GM/DL (32-36); Mean Corpuscular Hemoglobin 27 PG (27-34); Mean Corpuscular Volume 85.8 FL (87-102); Mean Platelet Volume 10.5 FL (9.6-12.0); Monocytes % 6.1 % (1.7-12.7); Neutrophils # 12.2 10*3/uL (1.4-7.4); Neutrophils % 76.5 % (38.7-73.9); Platelet Count 327 T/CUMM (130-400); Red Blood Count 4.08 MC/CUMM (3.8-5.5); Red Cell Distribution Width 15.4 % (9.3-17.3); White Blood Count 15.9 T/CUMM (4-12)
[2017-04-12 04:39] LABS: Alanine Aminotransferase 19 U/L (13-56); Albumin 1.7 G/DL (3.4-5.0); Alkaline Phosphatase 123 U/L (45-117); Aspartate Amino Transferase 29 U/L (0-37); Bilirubin,Total < 0.39 MG/DL (0.2-1.0); Blood Urea Nitrogen 51 MG/DL (7-18); Calcium 8.8 MG/DL (8.5-10.1); Glucose 111 MG/DL (74-106); Osmolality,Calculated 280.4 MOS/KG (273-304); Potassium 4.8 MMOL/L (3.5-5.1); Sodium 133 MMOL/L (136-145); Total Protein 6.4 G/DL (6.4-8.3)
[2017-04-12 04:46] LABS: Allen Test Positive; Pt O2 Delivery Device Ventilator
[2017-04-12 04:47] LABS: ABG Base Excess 1.6 MMOL/L (-2.5-2.5); ABG Oxygen Saturation 97.5 % (95-100); ABG PCO2 30.8 MM HG (35-48)
[2017-04-12] MEDS: INSULIN REGULAR 100 UNIT/ML SUBCUT SCH ×3 (06:10→17:47)
[2017-04-12] MEDS: POTASSIUM CHLORIDE 20 MEQ/15 ML UDCUP PO SCH ×2 (09:10→20:12)
[2017-04-12] MEDS: CARVEDILOL 12.5 MG TABLET PO SCH ×2 (09:10→20:12)
[2017-04-12] MEDS: FUROSEMIDE 40 MG/4 ML VIAL IV SCH (09:16)
[2017-04-12] MEDS: LEVOFLOXACIN INJ 250 MG in PREMIX 1 EACH IV SCH (09:16)
[2017-04-12] MEDS: HALOPERIDOL 5 MG/ML AMP IV SCH ×2 (09:21→20:12)
[2017-04-12] MEDS: DESITIN 4OZ/NYSTATIN 15 GRAM MIXTURE PASTE TOP SCH ×2 (13:08→20:13)
[2017-04-12] MEDS: ENOXAPARIN 30 MG/0.3 ML SYRINGE SUBCUT SCH (20:12)
[2017-04-12] MEDS: PANTOPRAZOLE 40 MG VIAL IV SCH (20:13)
[2017-04-13] MEDS: ALBUTEROL/IPRATROPIUM 3 ML NEB RESP TX SCH ×4 (00:05→19:25)
[2017-04-13] MEDS: INSULIN REGULAR 100 UNIT/ML SUBCUT SCH ×4 (00:43→18:17)
[2017-04-13 05:41] LABS: Calcium 8.8 MG/DL (8.5-10.1); Osmolality,Calculated 283.4 MOS/KG (273-304)
[2017-04-13 06:06] LABS: ABG PCO2 37.7 MM HG (35-48); ABG PH 7.436 (7.35-7.45)
[2017-04-13 06:07] LABS: ABG Base Excess 1.3 MMOL/L (-2.5-2.5); ABG HCO3 25.6 MMOL/L (20-26); ABG Oxygen Saturation 97.5 % (95-100); ABG PO2 93.2 MM HG (80-95); ABG TCO2 22.9 MMOL/L (23-27)
[2017-04-13 06:35] LABS: Basophils % 0.2 % (0.0-0.8); Eosinophils # 0.1 10*3/uL (0.0-0.87); Eosinophils % 0.4 % (0.00-10.9); Hemoglobin 11.7 GM/DL (12.0-16.0); Immature Granulocytes % 1.9 %; Immature Granulocytes Absolute 0.35 #; Lymphocytes # 2.4 10*3/uL (1.4-4.0); Mean Corpuscular HGB Conc 33.4 GM/DL (32-36); Mean Corpuscular Hemoglobin 28 PG (27-34); Mean Corpuscular Volume 83.3 FL (87-102); Mean Platelet Volume 10.4 FL (9.6-12.0); Monocytes # 1.1 10*3/uL (0.11-0.8); Neutrophils # 14.4 10*3/uL (1.4-7.4); Neutrophils % 78.5 % (38.7-73.9); Platelet Count 401 T/CUMM (130-400); Red Cell Distribution Width 15.4 % (9.3-17.3); White Blood Count 18.4 T/CUMM (4-12)
[2017-04-13] MEDS: LEVOFLOXACIN INJ 250 MG in PREMIX 1 EACH IV SCH (08:39)
[2017-04-13] MEDS: POTASSIUM CHLORIDE 20 MEQ/15 ML UDCUP PO SCH ×2 (08:40→22:54)
[2017-04-13] MEDS: CARVEDILOL 12.5 MG TABLET PO SCH ×2 (08:40→22:54)
[2017-04-13] MEDS: FUROSEMIDE 40 MG/4 ML VIAL IV SCH (08:40)
[2017-04-13] MEDS: HALOPERIDOL 5 MG/ML AMP IV SCH ×2 (08:45→22:55)
[2017-04-13] MEDS: DESITIN 4OZ/NYSTATIN 15 GRAM MIXTURE PASTE TOP SCH ×2 (08:51→22:56)
[2017-04-13] MEDS: PANTOPRAZOLE 40 MG VIAL IV SCH (22:54)
[2017-04-13] MEDS: ENOXAPARIN 30 MG/0.3 ML SYRINGE SUBCUT SCH (22:55)
[2017-04-14] MEDS: ALBUTEROL/IPRATROPIUM 3 ML NEB RESP TX SCH ×4 (00:14→18:08)
[2017-04-14] MEDS: INSULIN REGULAR 100 UNIT/ML SUBCUT SCH ×4 (01:06→18:17)
[2017-04-14 04:21] LABS: ABG Base Excess 2.4 MMOL/L (-2.5-2.5); ABG HCO3 26.6 MMOL/L (20-26); ABG Oxygen Saturation 97.6 % (95-100); ABG PCO2 36.4 MM HG (35-48); ABG PH 7.463 (7.35-7.45); ABG PO2 90.6 MM HG (80-95); ABG TCO2 23.3 MMOL/L (23-27)
[2017-04-14 05:31] LABS: Calcium 8.7 MG/DL (8.5-10.1); Osmolality,Calculated 284.4 MOS/KG (273-304); Potassium 5.2 MMOL/L (3.5-5.1)
[2017-04-14] MEDS: LEVOFLOXACIN INJ 250 MG in PREMIX 1 EACH IV SCH (08:36)
[2017-04-14] MEDS: DESITIN 4OZ/NYSTATIN 15 GRAM MIXTURE PASTE TOP SCH ×2 (09:13→21:46)
[2017-04-14] MEDS: HALOPERIDOL 5 MG/ML AMP IV SCH ×2 (09:24→21:45)
[2017-04-14] MEDS: CARVEDILOL 12.5 MG TABLET PO SCH ×2 (09:24→21:46)
[2017-04-14] MEDS: FUROSEMIDE 40 MG/4 ML VIAL IV SCH (09:27)
[2017-04-14] MEDS: POTASSIUM CHLORIDE 20 MEQ/15 ML UDCUP PO SCH ×2 (09:38→21:38)
[2017-04-14] MEDS: PANTOPRAZOLE 40 MG VIAL IV SCH (21:45)
[2017-04-14] MEDS: ENOXAPARIN 30 MG/0.3 ML SYRINGE SUBCUT SCH (21:45)
[2017-04-15] MEDS: INSULIN REGULAR 100 UNIT/ML SUBCUT SCH ×3 (00:05→12:24)
[2017-04-15] MEDS: ALBUTEROL/IPRATROPIUM 3 ML NEB RESP TX SCH ×3 (01:07→13:30)
[2017-04-15 05:09] LABS: Calcium 9.3 MG/DL (8.5-10.1); Osmolality,Calculated 284.5 MOS/KG (273-304); Potassium 4.8 MMOL/L (3.5-5.1)
[2017-04-15 07:32] LABS: ABG Base Excess 3.7 MMOL/L (-2.5-2.5); ABG HCO3 27.8 MMOL/L (20-26); ABG Oxygen Saturation 99.3 % (95-100); ABG PCO2 31.6 MM HG (35-48); ABG PH 7.525 (7.35-7.45); ABG TCO2 23.3 MMOL/L (23-27)
[2017-04-15] MEDS: POTASSIUM CHLORIDE 20 MEQ/15 ML UDCUP PO SCH (08:45)
[2017-04-15] MEDS: HALOPERIDOL 5 MG/ML AMP IV SCH (08:45)
[2017-04-15] MEDS: FUROSEMIDE 40 MG/4 ML VIAL IV SCH (08:45)
[2017-04-15] MEDS: LEVOFLOXACIN INJ 250 MG in PREMIX 1 EACH IV SCH (08:46)
[2017-04-15] MEDS: CARVEDILOL 12.5 MG TABLET PO SCH (08:46)
[2017-04-15] MEDS: DESITIN 4OZ/NYSTATIN 15 GRAM MIXTURE PASTE TOP SCH (08:47)
[2017-04-15] MEDS ORDERED: MORPHINE 2 MG/1 ML SYRINGE IV PRN (14:28)
[2017-04-16 04:28] LABS: Allen Test Positive
[2017-04-16 04:29] LABS: ABG Base Excess 4.5 MMOL/L (-2.5-2.5); ABG HCO3 27.7 MMOL/L (20-26); ABG Oxygen Saturation 94.9 % (95-100); ABG PCO2 36.4 MM HG (35-48); ABG PH 7.499 (7.35-7.45); ABG PO2 72.9 MM HG (80-95); ABG TCO2 28.8 MMOL/L (23-27)
[2017-04-17 11:04] VITALS: BP 163/91
== END 2017-04-17 12:50 | disposition hospice, inpatient (51) | DRG 870 ==
LOC: EDUNIT# → EDBD → N.3E → N.ED 16:29 → N.EDINP 18:08 → SUATTDRO 18:08 → N.ICU 19:48 → N.3E 04-16 12:09
PROVIDERS: ADMIT Internal Medicine; ATTEND Hospitalist